=== PATIENT | female | born 1990 | race Caucasian/White ===

== ENCOUNTER 2022-10-04 17:52 | Emergency (ER) | payer OTHER, SELFPAY ==
[2022-10-04 17:53] VITALS: BP 124/83; PULSE 73; TEMP 36.6; O2SAT 98
[2022-10-04 18:02] VITALS: PULSE 72; RESP 18; O2SAT 98
--- NOTE | 2022-10-04 18:14 | ED.GENADULT ---
HPI - General Adult General Chief complaint: Unspecified Stated complaint: withdrawl Time Seen by Provider: 10/04/22 17:56 Source: patient Mode of arrival: ambulatory Limitations: no limitations History of Present Illness HPI narrative: this is a 32-year-old female with a history of drug abuse, uses fentanyl and feels like she is having withdrawal symptoms her vitals are stable blood pressure 124/83 with a heart rate of 72 respirations 18. Currently there is 3 day history of nausea with a few episodes of vomiting with no diarrhea or constipation no fever chills no shortness of breath no chest pain. Onset (ago): day(s) Severity: mild Related Data Home Medications Medication Instructions Recorded Confirmed No Home Medications 10/04/22 10/04/22 Allergies Allergy/AdvReac Type Severity Reaction Status Date / Time No Known Allergies Allergy Verified 10/04/22 18:14 Review of Systems Review of Systems: All systems reviewed & are unremarkable except as noted in HPI and below PMFSH Past Medical History Medical History Drug abuse Exam Const: General: cooperative and no acute distress HENMT: Head: normal to inspection Ears: hearing grossly normal bilaterally Face and sinus: normal facial exam Mouth: Yes Normal oral and palatal mucosa present Throat: posterior oropharynx normal Eyes: General: appearance normal, both eyes and all related structures Eyelids: eyelids normal Conjunctivae: conjunctivae normal Neck: Neck: normal visual inspection, full ROM and no lymphadenopathy Chest: Chest palpation & inspection: normal inspection of the chest Resp: Effort & Inspection: normal respiratory effort Cardio: Jugular venous distension: no JVD Palpation: normal PMI Rate: regular rate Rhythm: regular rhythm GI: Inspection: normal to inspection Back/Spine/Pelvis: Back: no CVA tenderness Skin: General skin exam: normal color and no rashes or lesions noted Neuro: General: oriented to person, oriented to place and oriented to time Psych: Appearance: grossly normal and well kempt Mental Status: mental status grossly normal Course Course Emergency Course: patient received a dose of clonidine, Vistaril and Zofran and advised to follow-up with clinic to help with some withdrawals Vital Signs Vital signs: Vital Signs Temperature 36.6 C 10/04/22 17:53 Pulse Rate 73 10/04/22 17:53 Blood Pressure 124/83 10/04/22 17:53 Pulse Oximetry 98 10/04/22 17:53 Oxygen Delivery Room Air 10/04/22 17:53 Temperature 36.6 C 10/04/22 17:53 Pulse Rate 72 10/04/22 18:02 Respiratory Rate 18 10/04/22 18:02 Blood Pressure 124/83 10/04/22 17:53 Pulse Oximetry 98 10/04/22 18:02 Oxygen Delivery Room Air 10/04/22 18:02 Medical Decision Making Vital Signs Vital Signs: Vital Signs Temperature 36.6 C 10/04/22 17:53 Pulse Rate 73 10/04/22 17:53 Blood Pressure 124/83 10/04/22 17:53 Pulse Oximetry 98 10/04/22 17:53 Oxygen Delivery Room Air 10/04/22 17:53 Temperature 36.6 C 10/04/22 17:53 Pulse Rate 72 10/04/22 18:02 Respiratory Rate 18 10/04/22 18:02 Blood Pressure 124/83 10/04/22 17:53 Pulse Oximetry 98 10/04/22 18:02 Oxygen Delivery Room Air 10/04/22 18:02 Critical Care Time Critical Care Time Critical Care Time: No Discharge Plan Discharge Clinical Impression: Drug withdrawal Patient Disposition: Home, Self-Care Condition: Stable Instructions: Antibiotic Form, Opioid Withdrawal (ED) Additional Instructions: advised take medicine as prescribed and follow-up with some clinic for further evaluation and treatment. Prescriptions: New clonidine HCl 0.1 mg tablet 0.1 mg PO TID Qty: 30 0RF ondansetron 4 mg tablet,disintegrating 4 mg PO Q6H PRN (Reason: nausea and vomiting) Qty: 14 0RF No Action No Home Medications Follow-up/Referral
[2022-10-04] MEDS: ONDANSETRON HCL ODT 4 MG TABLET PO (18:22)
--- NOTE | 2022-10-04 18:26 | PC.NURSE ---
second floor notified of need for medication not available in ED pyxis at this time. RN awaiting med.
[2022-10-04] MEDS: cloNIDine HCL 0.1 MG TABLET PO (18:36)
[2022-10-04] MEDS: HYDROXYZINE HCL IM (18:53)
[2022-10-04 19:04] VITALS: BP 115/71; PULSE 67; RESP 18
== END 2022-10-04 19:07 | disposition home or self-care (01) ==
LOC: CHSED 18:20
PROVIDERS: Emergency Provider Emergency Medicine; PCP Family Medicine
DX: F11.13 Opioid abuse with withdrawal (principal)
CPT/HCPCS: 96372; 99283; A9270; J3410